=== PATIENT | female | born 1970 | race Two or more races ===

== ENCOUNTER 2025-07-29 12:46 | Emergency (ER) | payer OTHER ==
[~2025-07-29] VITALS: Ht 157.5 cm; Wt 83.6 kg
--- NOTE | 2025-07-29 13:05 | ECG ---
[facility] Test Date: 2025-07-29 Test Time: 13:04:23 Pat Name: MILADIS SMITH Department: [facility] ED Patient ID: [id number] Room: Gender: F Director Of Flight Operations: OLGA : 1970 Requested By: PEEWEE MOREL Order Number: [id number] Reading MD: Martin Valdez Measurements Intervals [place] Rate: 85 P: 68 DE: 166 QRS: 2 QRSD: 99 T: 43 QT: 392 QTc: 467 Interpretive Statements Sinus rhythm Low voltage, precordial leads Electronically Signed On 07-29-2025 15:05:26 PST by Martin Valdez Please click the below link to view image of tracing.
--- NOTE | 2025-07-29 13:15 | ED.PDOC ---
History of Present Illness HPI Comments This is a 54-year-old female who comes in with chief complaint of alcohol withdrawal symptoms. The patient is having tremors as well as nausea. The patient is an alcoholic and states that she has not slept for the past three days. She has been drinking alcohol to help her sleep and also taking some Benadryl. The patient is somewhat shaky. The patient had a near syncopal episode as well as chest pain and nausea so came to the emergency department's for evaluation. The patient has no other complaints at this time. Chief Complaint: Withdrawal Time Seen by MD: 12:56 Reviewed Notes: Nurses Notes, Medications, Allergies (No allergies to medications) Allergies: Coded Allergies: NO KNOWN ALLERGIES (Unverified , 07/29/25) Home Meds Active Scripts Ondansetron Odt 4MG Tab (ZOFRAN PO) 4 Mg Tb, 4 MG PO Q8HP PRN for 5 Days, #15 TA B ODT TAB-DISSOLVE IN MOUTH, THEN SWALLOW Prov:SAURABH HORTON MD 07/29/25 Chlordiazepoxide Hcl (Ni-1) (I (Librium) 10 Mg Cap, 10 MG PO BID for 7 Days, #14 CAP Prov:SAURABH HORTON MD 07/29/25 Information Source: Patient Mode of Arrival: Ambulatory Severity: Moderate Timing: Days Duration: Since onset Prehospital treatment: None Associated signs and symptoms Nausea with shaking and a near syncopal episode Past Medical History PAST MEDICAL HISTORY: Cancer (Cervical cancer) Surgical History: Hysterectomy TONGUE STITCHER History: No Pertinent TONGUE STITCHER History Family History Family History: Family hx of DM Social History Smoker: Non-Smoker Alcohol: Heavy Drugs: Marijuana Lives In: Home Constitutional: denies: chills, diaphoresis, fatigue, fever, malaise, sweats, weakness, others EENTM: denies: blurred vision, double vision, ear bleeding, ear discharge, ear drainage, ear pain, ear ringing, eye pain, eye redness, hearing loss, mouth pain, mouth swelling, nasal discharge, nose bleeding, nose congestion, nose pain, photophobia, tearing, throat pain, throat swelling, voice changes, others Respiratory: denies: cough, hemoptysis, orthopnea, SOB at rest, shortness of breath, SOB with excertion, stridor, wheezing, others Cardiovascular: reports: syncope (Near-syncope); denies: chest pain, dizzy spel ls, diaphoresis, Dyspnea on exertion, edema, irregular heart beat, left arm pain, lightheadedness, palpitations, PND, others Gastrointestinal: reports: nausea; denies: abdomen distended, abdominal pain, blood streaked bowels, constipated, diarrhea, dysphagia, difficulty swallowing, hematemesis, melena, poor appetite, poor fluid intake, rectal bleeding, rectal pain, vomiting, others Genitourinary: denies: abnormal vagina bleeding, burning, dyspareunia, dysuria, flank pain, frequency, hematuria, incontinence, pain, , vagina discharge, urgency, others Neurological: reports: tremors; denies: dizziness, fainting, headache, left sided numbness, left sided weakness, numbness, paresthesia, pre-existing deficit, right sided numbness, right sided weakness, seizure, speech problems, tingling, weakness, others Musculoskeletal: denies: back pain, gout, joint pain, joint swelling, muscle pain, muscle stiffness, neck pain, others Integumetry: denies: bruises, change in color, change in hair/nails, dryness, laceration, lesions, lumps, rash, wounds, others Allergic/Immunocompromised: denies: Difficulty Healing, Frequent Infections, Hives, Itching, others Hematologic/Lymphatic: denies: anemia, blood clots, easy bleeding, easy bruising, swollen glands, others Endocrine: denies: excessive hunger, excessive sweating, excessive thirst, excessive urination, flushing, intolerance to cold, intolerance to heat, unexplained weight gain, unexplained weight loss, others Psychiatric: reports: anxiety; denies: bipolar disorder, depression, hopeless, panic disorder, schizophrenia, sleepless, suicidal, others Physical Exam General Appearance: Mild Distress HEENT: Normal ENT Inspection, Pharynx Normal, TMs Normal Neck: Full Range of Motion, Non-Tender, Normal, Normal Inspection Respiratory: Chest Non-Tender, Lungs Clear, No Accessory Muscle Use, No Respiratory Distress, Normal Breath Sounds Cardiovascular: No Edema, No JVD, No Murmur, No Gallop, Normal Peripheral Pulses, Regular Rate/Rhythm Breast Exam: Deferred Gastrointestinal: No Organomegaly, Non Tender, No Pulsatile Mass, Normal Bowel Sounds, Soft Genitalia: Deferred Pelvic: Deferred Rectal: Deferred Extremities: No calf tenderness, Normal capillary refill, Normal inspection, Normal range of motion, Non-tender, No pedal edema Musculoskeletal : Apperance: Normal Neurologic: Alert, mobile product manager II-XII nml as Tested, No Motor Deficits, Normal Affect, Normal Mood, No Sensory Deficits Cerebellar Function: Normal Reflexes: Normal Skin: Dry, Normal Color, Warm Lymphatic: No Adenopathy Was a procedure done? Was a procedure done?: No EKG EKG : Pulse Rate (adult): 85 [place]: Normal Cardiac Rhythm: NSR ST: Nonsp (Low voltage) Differential Dx Considerations may include: Generalized weakness, electrolyte imbalance, alcohol withdrawal X-Ray, Labs, Meds, VS Vital Signs Date Time Temp Pulse Resp B/P (MAP) Pulse Ox O2 Delivery O2 Flow Rate FiO2 07/29/25 16:25 98.9 73 14 129/74 (92) 97 98.9 07/29/25 14:07 98.6 79 18 138/85 (102) 98 98.6 07/29/25 14:07 79 18 98 Room Air 07/29/25 13:15 85 07/29/25 13:04 85 07/29/25 12:51 99.2 92 16 165/69 96 99.2 Lab Test 07/29/25 16:13 07/29/25 13:30 Range/Units Urine Color Yellow Yellow Urine Clarity Turbid H Clear Urine pH 6.5 5.0-9.0 Urine Specific [place] 1.019 1.001-1.035 Urine Protein Trace H Negative Urine Ketones 2+ H Negative Urine Blood Negative Negative /uL Urine Nitrite Negative Negative Urine Bilirubin Negative Negative Urine Urobilinogen Over Negative mg/dL Urine Leukocyte Esterase Negative Negative /uL Urine RBC 3 0 - 4 /hpf Urine Microscopic WBC 1 0-5 /HPF Urine Squamous Epithelial Cells Few <5 /hpf Urine Bacteria None seen None Seen /hpf Urine Mucus Few None Seen Urine Glucose Normal Normal mg/dL Urine Opiates Screen Neg NEGATIVE Urine Fentanyl Screen Neg NEGATIVE Urine Barbiturates Screen Neg NEGATIVE Urine Phencyclidine Screen Neg NEGATIVE Urine Amphetamines Screen Neg NEGATIVE Urine Benzodiazepines Screen Neg NEGATIVE Urine Cocaine Screen Neg NEGATIVE Urine Cannabinoids Screen Pos NEGATIVE White Blood Count 6.0 4.4-10.8 10^3/uL Red Blood Count 4.23 4.0-5.20 10^6/uL Hemoglobin 13.3 12.2-16.2 g/dL Hematocrit 38.7 36.0-46.0 % Mean Corpuscular Volume 91.5 80.0-100.0 fL Mean Corpuscular Hemoglobin 31.5 28.0-32.0 pg Mean Corpuscular Hemoglobin Concent 34.4 32.0-36.0 g/dL Red Cell Distribution Width 13.6 11.8-14.3 % Platelet Count 88 L 140-450 10^3/uL Mean Platelet Volume 7.5 6.9-10.8 fL Neutrophils (%) (Auto) 76.2 37.0-80.0 % Lymphocytes (%) (Auto) 16.8 10.0-50.0 % Monocytes (%) (Auto) 6.3 0.0-12.0 % Eosinophils (%) (Auto) 0.4 0.0-7.0 % Basophils (%) (Auto) 0.3 0.0-2.0 % Neutrophils # (Auto) 4.5 1.6-8.6 10 ^3/uL Lymphocytes # (Auto) 1.0 0.4-5.4 10 ^3/uL Monocytes # (Auto) 0.4 0-1.3 10 ^3/uL Eosinophils # (Auto) 0 0-0.8 10 ^3/uL Basophils # (Auto) 0 0-0.2 10 ^3/uL Nucleated Red Blood Cells 0.0 % Sodium Level 130 L 136-145 mmol/L Potassium Level 3.8 3.5-5.1 mmol/L Chloride Level 95 L 98-107 mmol/L Carbon Dioxide Level 23 20-31 mmol/L Anion Gap 12 5-15 Blood Urea Nitrogen 6 L 9-23 mg/dL Creatinine 0.56 0.550-1.02 mg/dL Glomerular Filtration Rate Calc 109 >90 mL/min BUN/Creatinine Ratio 10.7 10.0-20.0 Serum Glucose 95 74-106 mg/dL Calcium Level 10.0 8.7-10.4 mg/dL Plasma/Serum Blood Alcohol < 3.0 <10 mg/dL Current Medications Medications (Trade) Dose Ordered Sig/Rosario Route Start Time Stop Time Status Last Admin Sodium Chloride 1,000 ml @ 1,000 mls/hr Q1H ONCE IV 07/29/25 13:15 07/29/25 14:14 DC 07/29/25 14:10 Lorazepam (Ativan Inj) 1 mg ONCE ONCE IV 07/29/25 13:15 07/29/25 13:16 DC 07/29/25 15:23 Ondansetron HCl (Zofran) 4 mg ONCE ONCE IV 07/29/25 13:15 07/29/25 13:16 DC 07/29/25 15:23 IV Hep-Lock was established The patient was given a 1 L bolus of normal saline The patient was given Zofran 4 mg IV push The patient was given Ativan 1 mg IV push. Patient's CBC and chemistry panel are within normal limits The urine tox is positive for marijuana The patient is being discharged with withdrawal as well as marijuana use The patient was given a prescription of Zofran as well as Librium Time of 1ST Reevaluation: 17:39 Reevaluation 1ST: Unchanged Patient Education/Counseling: Diagnosis, Treatment, Prognosis, Need For Follow Up Family Education/Counseling: No Family Present SEPSIS Sepsis Screen Date sepsis recognized/suspect: Jul 29, 2025 Time Sepsis recognized/suspect: 1254 Recent Procedure: No On Antibiotic Therapy: No Respiratory Rate >20: No Heart Rate >90: Yes Temp<36 C (96.8 F) or >38.3 C: No SBP <90 or MAP <65 mmHG: No New Acute Mental Status Change: No Is the patient on CPAP, BIPAP,: No Physician Orders Electrocardigram (07/29/25 12:56) Heplock Iv (07/29/25 13:08) Vital Signs Date Time Temp Pulse Resp B/P (MAP) Pulse Ox O2 Delivery O2 Flow Rate FiO2 07/29/25 16:25 98.9 73 14 129/74 (92) 97 98.9 07/29/25 14:07 98.6 79 18 138/85 (102) 98 98.6 07/29/25 14:07 79 18 98 Room Air 07/29/25 13:15 85 07/29/25 13:04 85 07/29/25 12:51 99.2 92 16 165/69 96 99.2 Laboratory Tests Test 07/29/25 13:30 White Blood Count 6.0 10^3/uL (4.4-10.8) Medications Medications Dose Ordered Sig/Rosario Route Start Time Stop Time Status Last Admin Dose Admin Lorazepam 1 mg ONCE ONCE IV 07/29/25 13:15 07/29/25 13:16 DC 07/29/25 15:23 Ondansetron HCl 4 mg ONCE ONCE IV 07/29/25 13:15 07/29/25 13:16 DC 07/29/25 15:23 Sodium Chloride 1,000 ml @ 1,000 mls/hr Q1H ONCE IV 07/29/25 13:15 07/29/25 14:14 DC 07/29/25 14:10 Departure 1 Departure Time of Disposition: 17:40 Impression: Primary Impression: Alcohol withdrawal Qualified Codes: F10.930 - Alcohol use, unspecified with withdrawal, uncomplicated Additional Impression: Vomiting Qualified Codes: R11.14 - Bilious vomiting Disposition: HOME / SELF CARE / HOMELESS Condition: Fair e-Prescriptions Ondansetron Odt 4MG Tab (ZOFRAN PO) 4 Mg Tb 4 MG PO Q8HP PRN for 5 Days, #15 TAB ODT TAB-DISSOLVE IN MOUTH, THEN SWALLOW Prov: SAURABH HORTON MD 07/29/25 Chlordiazepoxide Hcl (Ni-1) (I (Librium) 10 Mg Cap 10 MG PO BID for 7 Days, #14 CAP Prov: SAURABH HORTON MD 07/29/25 Discharged With: Self Critical Care Note Critical Care Time?: No Stability Stability form required: No Heart Score Heart Score: Heart Score Response (Comments) Value History N/A 0 EKG N/A 0 Age N/A 0 Risk Factors N/A 0 Troponin N/A 0 Total 0 SAURABH HORTON MD Jul 29, 2025 13:15
[2025-07-29 13:55] LABS: Hematocrit 38.7 % (36.0-46.0); Hemoglobin 13.3 g/dL (12.2-16.2); Mean Corpuscular Hemoglobin 31.5 pg (28.0-32.0); Mean Corpuscular Volume 91.5 fL (80.0-100.0); Nucleated Red Blood Cells % 0.0 %
[2025-07-29 13:58] LABS: Potassium 3.8 mmol/L (3.5-5.1)
[2025-07-29 13:59] LABS: Anion Gap 12 (5-15); Carbon Dioxide 23 mmol/L (20-31)
[2025-07-29 14:00] LABS: Calcium 10.0 mg/dL (8.7-10.4)
[2025-07-29 14:04] LABS: Glucose 95 mg/dL (74-106)
[2025-07-29 14:05] LABS: BUN/Creatinine Ratio 10.7 (10.0-20.0)
[2025-07-29 14:06] LABS: Blood Urea Nitrogen 6 mg/dL (9-23); Chloride 95 mmol/L (98-107); Sodium 130 mmol/L (136-145)
[2025-07-29] MEDS: SODIUM CHLORIDE 0.9% 1,000 ML IV ONE (14:10)
[2025-07-29] MEDS: LORazepam 2MG/ML-1ML VIAL IV ONE (15:23)
[2025-07-29] MEDS: ONDANSETRON HCL 4 MG/2 ML VIAL IV ONE (15:23)
[2025-07-29 16:31] LABS: Urine Protein, UAD TRACE (Negative)
[2025-07-29 16:42] LABS: Amphetamine Screen, Urine Neg (NEGATIVE); Barbiturate Scree,Urine Neg (NEGATIVE); Benzodiazephine Screen, Urine Neg (NEGATIVE); Cannabinoid Screen, Urine Pos (NEGATIVE); Cocaine Screen, Urine Neg (NEGATIVE); Opiate Scree,Urine Neg (NEGATIVE); Phencyclidine Screen, Urine Neg (NEGATIVE)
[2025-07-29] MEDS ORDERED: ZOFR4T PO (16:45)
[2025-07-29] MEDS ORDERED: CHL10C PO (16:45)
[2025-07-29 18:10] VITALS: BP 117/56; PULSE 72; RESP 18; TEMP 98.4; O2SAT 98
== END 2025-07-29 18:12 | disposition home or self-care (01) ==
LOC: ER 12:46
DX: F10.239 Alcohol dependence with withdrawal, unspecified (principal); R11.2 Nausea with vomiting, unspecified; F12.90 Cannabis use, unspecified, uncomplicated; Z79.899 Other long term (current) drug therapy; Z90.710 Acquired absence of both cervix and uterus; Y90.9 Presence of alcohol in blood, level not specified
CPT/HCPCS: 36415; 80048; 80307; 80320; 81001; 85025; 93005; 96361; 96374; 96375; 99285; J2060; J2405; J7030